=== PATIENT | female | born 1965 | race Hispanic/Latino ===

== ENCOUNTER 2018-02-07 22:10 | Observation (INO) | payer SELFPAY ==
[~2018-02-07 22:10] MED LIST: ISOVUE-370 76%-LOCM 1 ML ONE
[2018-02-07 23:22] LABS: PTT 23.1 SEC (22.9-36.1); Prothrombin Time 13.1 SEC (12.0-14.7)
[2018-02-07 23:23] LABS: Hemoglobin 9.1 g/dL (12.0-16.0); Mean Corpuscular Hemoglobin 17.2 pg (27.0-31.0); Mean Corpuscular Volume 57.4 fL (78.0-98.0); Platelet Count 310 thou/uL (130-400); RBC Distribution Width 19.6 % (11.5-14.5); Red Blood Cell (RBC) Count 5.28 mill/uL (4.20-5.40); White Blood Cell (WBC) Count 9.4 thou/uL (4.8-10.8)
[2018-02-07 23:28] LABS: ALT (SGPT) 20 U/L (8-55); AST (SGOT) 20 U/L (5-34); Albumin 4.2 g/dL (3.5-5.0); Alkaline Phosphatase 84 U/L (40-150); Anion Gap 13 mmol/L (10-20); BUN (Urea Nitrogen) 12 mg/dL (7.0-18.7); Bilirubin, Total 0.2 mg/dL (0.2-1.2); Calc. Creatinine Clearance 0 mL/min (70-130); Calcium 9.3 mg/dL (7.8-10.44); Carbon Dioxide 20 mmol/L (22-29); Chloride 105 mmol/L (98-107); Estimated GFR-MDRD Greater than 90; Globulin 3.3 g/dL (2.4-3.5); Glucose 98 mg/dL (70-105); Potassium 3.9 mmol/L (3.5-5.1); Protein, Total 7.5 g/dL (6.0-8.3); Sodium 134 mmol/L (136-145)
[2018-02-07 23:30] LABS: #Basophils 0.1 thou/uL (0.0-0.2); #Eosinphils 0.1 thou/uL (0.0-0.7); #Lymphocytes 3.2 thou/uL (1.20-3.40); #Monocytes 0.6 thou/uL (0.11-0.59); #Neutrophils 5.4 thou/uL (1.40-6.50); %Basophils 0.7 % (0.0-1.0); %Eosinophils 1.5 % (0.0-10.0); %Lymphocytes 34.2 % (21.0-51.0); %Neutrophils 57.6 % (42.0-75.0); Anisocytosis SLIGHT = 6-15 cells (100X) (0-5/hpf); Elliptocytes SLIGHT = 2-5 cells (100X) (0-1/hpf); Hypochromia SLIGHT = 6-15 cells (100X) (0-5/hpf); MDiff Complete? YES; Microcytosis MODERATE=15-30 cells (100X) (0-5/hpf)
--- NOTE | 2018-02-07 23:31 | CT ---
NONCONTRAST CT HEAD 02/07/18 HISTORY: Stroke. Left sided facial numbness and left upper extremity weakness. COMPARISON: None available. FINDINGS: There is no evidence of a hemorrhage, acute infarction, mass effect, or midline shift. Ventricular sy stem is normal in size, shape, and position. The visualized paranasal sinuses and mastoid air cells a re clear. Calvarial structures are intact. IMPRESSION: 1. No acute intracranial abnormalities demonstrated. 2. Above findings discussed with Dr. Chowdhury in the Emergency Department on 02/07/18 at 2308 hours. POS: [facility]
[2018-02-07 23:33] LABS: CKMB 0.8 ng/mL (0-6.6); Troponin I Less than 0.010 ng/mL (< 0.028)
--- NOTE | 2018-02-07 23:43 | CT ---
CT ANGIOGRAM BRAIN WITH IV CONTRAST AND 3D RECONSTRUCTIONS CT ANGIOGRAM NECK WITH IV CONTRAST AND 3D RECONSTRUCTIONS 02/07/18 HISTORY: Left sided facial numbness, left upper extremity weakness, stroke. CT ANGIOGRAM HEAD: The bilateral middle cerebral and anterior cerebral arteries are patent. The A1 segment of the right anterior cerebral artery is very small in caliber which is a normal variant. The distal vertebral art eries and basilar artery as well as posterior cerebral arteries are patent. there is no focal stenosi s or branch occlusion seen. No aneurysm is seen within the limitations of the technique of this exami nation. IMPRESSION: No focal stenosis or branch occlusion involving the bois forte of [place] or vertebrobasilar system. CT ANGIOGRAM NECK: The origin of the great vessels are mostly obscured due to artifact from very dense contrast in the i nnominate vein limiting evaluation. However, the innominate artery as well as bilateral common caroti d arteries and subclavian arteries are patent. the bilateral internal and external carotid arteries a re patent. The internal carotid arteries are very tortuous bilaterally. The left internal carotid artery extends laterally and approaches the deep portion of the left parotid gland. The vertebral arteries are codo minant bilaterally and are patent. IMPRESSION: 1. Very tortuous but patent bilateral internal carotid arteries. 2. Patent bilateral vertebral arteries. The above findings discussed with Dr. Chowdhury in the Emergency Department on 02/07/18 at 2331 hours. POS: [facility]
[2018-02-08 02:04] VITALS: BMI 36.3
[2018-02-08] MEDS ORDERED: Acetaminophen 325 MG TAB PO PRN (02:08)
[2018-02-08] MEDS ORDERED: Ondansetron HCl/PF 4 MG/2 ML Vial IVP PRN ×2 (02:08→07:10)
[2018-02-08] MEDS ORDERED: Ondansetron ODT 4 MG TAB SL PRN (02:08)
[2018-02-08 03:15] LABS: Troponin I 0.015 ng/mL (< 0.028)
[2018-02-08 06:23] LABS: Troponin I Less than 0.010 ng/mL (< 0.028)
[2018-02-08] MEDS ORDERED: Bisacodyl 5 MG TAB PO PRN (07:10)
[2018-02-08] MEDS ORDERED: Lorazepam 1 MG TAB PO PRN (07:10)
[2018-02-08] MEDS ORDERED: hydrALAZINE 20 MG/ML VIAL SLOW IVP PRN (07:10)
[2018-02-08] MEDS ORDERED: Benzonatate 100 MG CAP PO PRN (07:10)
[2018-02-08] MEDS ORDERED: Nitroglycerin 0.4 MG TAB (25 Tab Bottle) SL PRN (07:10)
[2018-02-08] MEDS ORDERED: Diabetic Tussin 200 MG/10 ML UDCUP PO PRN (07:10)
[2018-02-08] MEDS ORDERED: Loratadine 10 MG TAB PO PRN (07:10)
[2018-02-08] MEDS ORDERED: cloNIDine 0.1 MG TAB PO PRN (07:10)
[2018-02-08] MEDS ORDERED: Senokot 8.6 MG TAB PO PRN (07:10)
[2018-02-08] MEDS ORDERED: traMADol HCl 50 MG TAB PO PRN (07:10)
[2018-02-08 07:54] LABS: Cardiac Risk 6.3 (Less than 4.5); Cholesterol 247 mg/dl (< 200 Desired); HDL Cholesterol 39 mg/dL (>60 Neg Risk); Triglycerides 593 mg/dL (Less than 150)
[2018-02-08] MEDS ORDERED: Aspirin 325 mg Enteric Coated Tablet PO SCH (09:00)
[2018-02-08 10:11] LABS: Iron 31 ug/dL (50-170); Iron Binding Capacity, Total 549 mcg/dL (265-497)
[2018-02-08] MEDS ORDERED: IRON SUCROSE COMPLEX 100 MG/5 ML SLOW IVP SCH (13:45)
[2018-02-08] MEDS ORDERED: Sodium Ferric Gluconate 250 MG in Sodium Chloride 0.9% 100 ML IVPB SCH (14:00)
--- NOTE | 2018-02-08 14:06 | HP ---
DATE OF ADMISSION: 02/08/2018 CHIEF COMPLAINT: Left-sided chest tightness associated with left arm heaviness and tingling. HISTORY OF PRESENT ILLNESS: Ms. De Paz is a 52-year-old Venezuelan speaking only female with history of what she describes as ulcers in her stomach and history of anemia, who presented to the emergency ro om with above-mentioned complaint. History is mainly obtained by the patient herself using the help of a [place]an interpretation by our medical student and the chart has been reviewed extensively. Ms. De Paz reports that yesterday she started to have sudden onset of left-sided chest pain about 9/ 0 in intensity. It radiated to her left upper back and was associated with some mild shortness of br eath. She started to feel left upper extremity numbness and tingling. She also felt some palpitatio ns. She reported that she has been having some on and off palpitations for the last 2 days. She den ies any recent illnesses. These symptoms have not happened in the past. She denies any changes in h er vision. No changes in her speech. No facial droop was noticed. She denies any weakness of her a raheem or legs. She does report that she is perimenopausal and has been having heavy bleeding for the last few days. She just stopped a few days ago. She reports that she has been told that she has been anemic in the past and actually has undergone what sounds like an endoscopy probably in [place]. She reports that she was told that she has ulcers, but currently is not on any treatment for that. She denies any blo od in her stools or any black colored stools. No nausea, vomiting, diarrhea. She did have some urin rose frequency and burning couple days ago, but that is getting better. She has been told in the past that her cholesterol is high, but has not been diagnosed with hypertens ion in the past. She smokes about 4-6 cigarettes daily, but denies any drug or alcohol abuse. She d oes have family history of heart disease in her sister. Upon presentation to the emergency room, she was hemodynamically stable. Her blood pressure was 151/86 with a pulse of 105. She initially prese nted to [facility] where she underwent initial workup including a 12-lead EKG and ca rdiac enzymes, they were unremarkable. She was given pain medication, sublingual nitroglycerin, and aspirin, and was transferred to our facility for further workup. In our emergency department, she un derwent a CT angio of her head to rule out stroke for some reason and it was negative. There is tort uosity of the bilateral internal carotid arteries, but they are patent. Bilateral vertebral arteries are patent as well. She also underwent a CT scan of the brain which was once again unremarkable. C hest x-ray was unremarkable. Her cardiac enzymes have been negative so far as well. She is now anand vora admitted for further workup of her left-sided chest pain. PAST MEDICAL HISTORY: 1. Possibly peptic ulcer disease as described by the patient. 2. History of dyslipidemia. 3. Heavy menstrual bleeding in the perimenopausal period. 4. History of anemia. PAST SURGICAL HISTORY: 1. section x3. 2. Cholecystectomy. SOCIAL HISTORY: She is and lives with the family. Smokes 4-5 cigarettes per day. Denies an y drug or tobacco abuse. ALLERGIES: No known medication allergies. CURRENT MEDICATIONS: None. FAMILY HISTORY: Significant for heart disease in her father. Both of her parents had hypertension a nd her dad also had diabetes. REVIEW OF SYSTEMS: A 12-point review of systems is done, it is negative except for those mentioned i n the history and physical. LABORATORY DATA: CBC shows WBCs 9.4 with 57% neutrophils, hemoglobin is 9.1, which microcytic hypoch romic. Coagulation studies within normal limits. Serum chemistries upon presentation: Sodium 134, bicarbonate 20, otherwise unremarkable. Troponin level is within normal limit x3. Lipid panel shows triglycerides of 593, total cholesterol 247. Chest x-ray by my review has no evidence to suggest pleural effusion, infiltrate or edema. A 12-lead EKG by my review shows no evidence of acute ST or T-wave changes. She has normal sinus rhythm. PHYSICAL EXAMINATION: VITAL SIGNS: Most recent vital signs: Temperature 98.2, pulse of 62, respirations 16, saturating 98 % on room air, blood pressure 138/64. GENERAL: No acute distress, awake, alert, oriented x3, lying comfortably in bed. Family is at [facility]. HEENT: Mucous membrane is moist and pink. No oropharyngeal exudate or erythema. Head is normocepha lic, atraumatic. Pupils equal, reactive to light and accommodation. Extraocular movement intact. NECK: Supple without any lymphadenopathy, JVD or bruit. CHEST: Clear to auscultation without any wheezing, rales or rhonchi. CARDIAC: Rate and rhythm is regular without any murmur, rubs or gallops. ABDOMEN: Soft, nontender, nondistended, positive bowel sound, obese. EXTREMITIES: Free of any cyanosis, clubbing, or edema. NEUROLOGIC: Nonfocal. SKIN: Free of any rashes or bruises. Feels warm and dry to touch. PSYCHIATRIC: Normal affect. IMPRESSION AND PLAN: 1. Left-sided chest pain with left arm heaviness. The patient has multiple risk factors for coronar y arterial disease. She has extremely high values of triglycerides and cholesterol. At this time, s he will be started on aspirin and we will go ahead and start her on Lipitor as well as gemfibrozil be cause her levels are too high to be controlled by diet alone. She has been given strict instructions against tobacco abuse and has been instructed about dietary and lifestyle modification as well. We will go ahead and obtain a nuclear medicine stress test for further evaluation and rule out acute cor onary syndrome. Continue tele monitoring for now. 2. Iron deficiency anemia. We will check her iron levels and transfuse her with IV iron and if low. Most likely cause is perimenopausal abnormal bleeding. She will be referred to [facility] for this. W e will also obtain occult blood testing in the stool to rule out gastrointestinal causes given her hi story of ulcer disease. We will start her on PPIs for now. 3. Dysuria. Check urinalysis to rule out urinary tract infection. No indication for antibiotic for now. 4. Morbid obesity. Her BMI is 36.3. Once again lifestyle and dietary modifications advised. 5. Dyslipidemia. As above, she will be started on statin and gemfibrozil with dietary and lifestyle modification. 6. Deep venous thrombosis and gastrointestinal prophylaxis. DISPOSITION: Ms. De Paz is currently being admitted to the hospital to rule out acute coronary syndr ome and workup for anemia. She has continued observation status. Further management will depend upo n her clinical course.
--- NOTE | 2018-02-08 15:20 | NM ---
RADIONUCLIDE STRESS AND REST MYOCARDIAL PERFUSION SCAN WITH CT ATTENUATION CORRECTION AND SPECT IMAGI NG: HISTORY: Chest pain. FINDINGS: Adenosine protocol was used. There was heterogeneous uptake of radiotracer throughout the left ventri cular myocardium. No focal perfusion defect or reversibility. QGS analysis of gated SPECT images shows no focal wall motion abnormalities. Left ventricular ejection fraction is calculated at 79%. IMPRESSION: 1. Normal myocardial perfusion scan. 2. Normal LVEF. POS: [facility]
[2018-02-08 15:37] VITALS: BP 128/59; TEMP 97.6
[2018-02-08 15:43] LABS: Bilirubin Negative (Negative); Blood, Urine Negative (Negative); Clarity CLEAR (Clear); Glucose, Urine (Dipstick) Negative (Negative); Leukocyte Negative (Negative); Nitrite Negative (Negative); Protein, Urine (Dipstick) Negative (Neg-Trace); Urobilinogen 0.2 mg/dL (0.2-1.0)
[2018-02-08] MEDS ORDERED: ADENOSINE 60 MG/20 ML VIAL ONE (15:44)
[2018-02-08 15:48] LABS: Specific Gravity, Urine 1.048 (1.002-1.036)
[2018-02-08] MEDS ORDERED: Gemfibrozil 600 MG TAB PO SCH (16:30)
[2018-02-08] MEDS ORDERED: Simvastatin 40 MG TAB PO SCH (21:00)
[2018-02-08] MEDS ORDERED: Atorvastatin Calcium 20 MG TAB PO SCH (21:00)
--- NOTE | 2018-02-09 23:57 | DIS ---
DATE OF ADMISSION: 02/08/2018 DATE OF DISCHARGE: 02/08/2018 CONDITION AT THE TIME OF DISCHARGE: Stable. DISCHARGE DISPOSITION: Home. PRIMARY CARE PHYSICIAN: None. Patient is instructed to follow up with one of the free clinics in the community. DISCHARGE DIAGNOSES: 1. Left-sided chest pain, acute coronary syndrome ruled out. 2. Dyslipidemia. 3. Iron-deficiency anemia. 4. Abnormal perimenopausal bleeding. 5. Dysuria. 6. Dyslipidemia. 7. History of gastrointestinal bleed and peptic ulcer disease DISCHARGE MEDICATIONS: 1. Protonix 40 mg daily. 2. Gemfibrozil 600 mg p.o. b.i.d. 3. Ferrous sulfate 325 mg p.o. b.i.d. 4. Atorvastatin 20 mg daily. PROCEDURES DONE IN THE HOSPITAL: CT angiogram of the head and neck, which is unremarkable. CT scan of the brain which is unremarkable. Nuclear medicine stress test, which is normal without any eviden ce of ischemia or infarction. EF 79%. HOSPITAL COURSE: The patient was admitted earlier today for chest pain workup. Please see admission history and physical for further detail. She was found to be dyslipidemic and was started on statin and hypertriglyceride medications. She underwent nuclear medicine stress test, which was normal. S he has history of anemia and abnormal perimenopausal bleeding and what she told us was possible GI bl eed and peptic ulcer disease. She was given referral to outpatient [facility] with Dr. Alfred stephenson. She was given referral to outpatient followup with gastroenterology, Dr. Palomo. Her H&H was sta ble. She did not have any active bleeding ongoing. She was started on ferrous sulfate as instructed to follow up with primary care physician for establishment of care. Her iron level was low at 31 an d she was resuscitated with IV iron before discharge.
--- NOTE | 2018-02-11 01:01 | EKG ---
Test Reason : Blood Pressure : / mmHG Vent. Rate : 072 BPM Atrial Rate : 072 BPM P-R Int : 152 ms QRS Dur : 086 ms QT Int : 380 ms P-R-T Axes : 017 023 026 degrees QTc Int : 416 ms Normal sinus rhythm Normal ECG Confirmed by RAI MILLAN DO ([id number]), science editor JESSIE MORENO ([id number]) on 02/11/2018 1:01:16 AM Referred By: Confirmed By:RAI MILLAN DO
== END 2018-02-08 18:06 | disposition home or self-care (01) ==
LOC: ERS 22:10 → 2SW 02-08 00:15
PROVIDERS: ADMIT Hospitalist; ATTEND Hospitalist
DX: R07.9 Chest pain, unspecified (principal); E78.5 Hyperlipidemia, unspecified; D50.9 Iron deficiency anemia, unspecified; E66.01 Morbid (severe) obesity due to excess calories; N92.4 Excessive bleeding in the premenopausal period; R30.0 Dysuria; F17.210 Nicotine dependence, cigarettes, uncomplicated; Z68.36 Body mass index [BMI] 36.0-36.9, adult; Z87.19 Personal history of other diseases of the digestive system; Z79.899 Other long term (current) drug therapy
CPT/HCPCS: 36415; 36416; 70450; 70496; 70498; 78452; 80061; 81003; 83540; 83550; 84484; 85025; 85610; 85730; 93005; 93017; 96365; 96366; A4216; A9500; G0378; J0153; J2916; J7050

== ENCOUNTER 2018-08-16 17:53 | Observation (INO) | payer SELFPAY ==
[2018-08-16 18:41] LABS: #Eosinphils 0.1 thou/uL (0.0-0.7); #Lymphocytes 2.5 thou/uL (1.20-3.40); #Monocytes 0.4 thou/uL (0.11-0.59); %Basophils 0.4 % (0.0-1.0); %Eosinophils 0.9 % (0.0-10.0); %Lymphocytes 30.9 % (21.0-51.0); %Monocytes 5.6 % (0.0-10.0); %Neutrophils 62.2 % (42.0-75.0); Hemoglobin 11.5 g/dL (12.0-16.0); Mean Corpuscular HGB CONC 29.9 g/dL (32.0-36.0); Mean Corpuscular Hemoglobin 19.7 pg (27.0-31.0); Mean Corpuscular Volume 65.8 fL (78.0-98.0); Mean Platelet Volume 5.8 fL (7.4-10.4); Platelet Count 325 thou/uL (130-400); RBC Distribution Width 19.2 % (11.5-14.5); Red Blood Cell (RBC) Count 5.82 mill/uL (4.20-5.40)
[2018-08-16 19:00] LABS: Anisocytosis SLIGHT = 6-15 cells (100X) (0-5/hpf); Hypochromia SLIGHT = 6-15 cells (100X) (0-5/hpf); MDiff Complete? YES; Microcytosis SLIGHT = 6-15 cells (100X) (0-5/hpf); Ovalocytes SLIGHT = 2-5 cells (100X) (0-1/hpf); Platelet Morphology Comment Appears Adequate; Polychromasia SLIGHT = 2-3 cells (100X) (0-2/hpf); Target Cells SLIGHT = 2-5 cells (100X) (0-1/hpf)
[2018-08-16 19:05] LABS: ALT (SGPT) 17 U/L (8-55); AST (SGOT) 18 U/L (5-34); Albumin 4.2 g/dL (3.5-5.0); Alkaline Phosphatase 98 U/L (40-150); Anion Gap 16 mmol/L (10-20); BUN (Urea Nitrogen) 10 mg/dL (9.8-20.1); Bilirubin, Total 0.2 mg/dL (0.2-1.2); Calc. Creatinine Clearance 0 mL/min (70-130); Calcium 9.3 mg/dL (7.8-10.44); Carbon Dioxide 19 mmol/L (22-29); Chloride 107 mmol/L (98-107); Estimated GFR-MDRD 90; Globulin 3.5 g/dL (2.4-3.5); Glucose 86 mg/dL (70-105); Protein, Total 7.7 g/dL (6.0-8.3); Sodium 138 mmol/L (136-145)
[2018-08-16 19:10] LABS: BHCG - Serum Negative (NEGATIVE); Pregs Control Background? CLEAR/WHITE (CLR/WHITE); Pregs Control Bar Appear? YES (CONTROL BAR)
[2018-08-16 20:56] LABS: Bilirubin Negative (Negative); Blood, Urine Small (Negative); Clarity CLEAR (Clear); Glucose, Urine (Dipstick) Negative (Negative); Leukocyte Negative (Negative); Nitrite Negative (Negative); Protein, Urine (Dipstick) Trace mg/dL (Neg-Trace); Specific Gravity, Urine 1.023 (1.002-1.036); Urobilinogen 0.2 mg/dL (0.2-1.0)
[2018-08-16] MEDS ORDERED: Metoclopramide HCl 10 MG/2 ML VIAL ONE (20:57)
[2018-08-16 20:58] LABS: Bacteria/HPF None Seen HPF (None Seen); Hyaline Casts/LPF 0-3 HYALINE CAST LPF (0-3 Hyaline); Pathc Cast-AUWi Flag 0.14 (0-2.49); Squamous Epithelial 0-3 HPF (0-3); WBC/HPF 0-3 HPF (0-3)
[2018-08-16] MEDS ORDERED: diphenhydrAMINE 50 MG/ML VIAL ONE (20:58)
[2018-08-16] MEDS ORDERED: Ketorolac Tromethamine 30 MG/ML VIAL ONE (20:58)
--- NOTE | 2018-08-16 21:47 | CT ---
HEAD CT WITHOUT CONTRAST: 08/16/18 COMPARISON: 02/07/18 HISTORY: Headaches. TECHNIQUE: Axial CT imaging at 5 mm intervals from vertex through skull base without contrast. FINDINGS: The imaged paranasal sinuses/mastoid air cells are well aerated. There is no displaced calvarial frac ture. There is no intracranial hemorrhage, midline shift, or mass effect. IMPRESSION: No acute findings. POS: [facility]
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
--- NOTE | 2018-08-17 00:08 | CT ---
CT ANGIOGRAM OF HEAD AND NECK 08/16/18 HISTORY: Headache and dizziness. TECHNIQUE: Axial CT imaging at 1.25 mm intervals from vertex through lung apices with IV contrast using a CT ang iogram protocol. Coronal and sagittal 3D reformatted imaging obtained. FINDINGS: The visualized lung apices appear unremarkable. The retroantral fat and parapharyngeal fat appears clear bilaterally. The parotid glands and submandi bular glands demonstrate no acute findings. The tonsillar pillars, epiglottis and pre-epiglottic fat, hyoid bone, thyroid cartilage, cricoid cartilage, and thyroid gland demonstrate no acute findings. N o lymphadenopathy is seen within the neck. The paranasal sinuses and mastoid air cells are well aerated. There is a bovine arch noted. Origin of the left subclavian artery, left common carotid artery, innom inate artery, right subclavian artery and right common carotids demonstrate no hemodynamically signif icant stenosis. Bilateral vertebral artery origins appear unremarkable. The vertebral arteries are patent bilaterally. The basilar artery is patent. Branches of the basilar artery appear patent as well. No saccular aneur ysm, high grade stenosis or vascular occlusion is seen involving the posterior circulation. On the basis of NASCET criteria, there is no hemodynamically significant stenosis involving the commo n carotid artery on either side. On the basis of NASCET criteria, There is no hemodynamically significant stenosis involving the inter nal carotid artery on either side. Bilateral internal carotid arteries are markedly tortuous. The A1 segment is hypoplastic on the right. Distal ANGUS branches appear patent bilaterally. The M1 segment is patent bilaterally. The MCA bifurcation appears unremarkable bilaterally and distal MCA branches appear intact. No saccular aneurysm, high grade stenosis or vascular occlusion is seen involving the anterior circulation. IMPRESSION: CT angiogram of the head and neck demonstrate no acute findings. Incidental findings as detailed chidi javier. POS: [facility]
[2018-08-17] MEDS ORDERED: Ondansetron ODT 4 MG TAB SL PRN (00:23)
[2018-08-17] MEDS ORDERED: Ondansetron PF 4 MG/2 ML Vial IVP PRN ×2 (00:23)
[2018-08-17] MEDS ORDERED: Acetaminophen 325 MG TAB PO PRN ×2 (00:23)
[2018-08-17] MEDS ORDERED: Ondansetron ODT 4 MG TAB PO PRN (00:23)
[2018-08-17] MEDS ORDERED: Cyclobenzaprine 10 MG TAB PO PRN (00:41)
[2018-08-17] MEDS ORDERED: Methocarbamol 500 MG TAB PO SCH ×2 (00:45→15:28)
[2018-08-17] MEDS ORDERED: Docusate 100 MG CAP PO PRN (00:45)
[2018-08-17 00:58] VITALS: BMI 29.4
[2018-08-17] MEDS: Sodium Chloride 0.9% 1,000 ML IV SCH ×2 (01:08→12:06)
[2018-08-17 05:13] LABS: #Basophils 0.1 thou/uL (0.0-0.2); #Eosinphils 0.2 thou/uL (0.0-0.7); #Lymphocytes 2.8 thou/uL (1.20-3.40); #Monocytes 0.5 thou/uL (0.11-0.59); #Neutrophils 3.2 thou/uL (1.40-6.50); %Basophils 0.9 % (0.0-1.0); %Eosinophils 2.4 % (0.0-10.0); %Lymphocytes 41.8 % (21.0-51.0); %Monocytes 7.1 % (0.0-10.0); %Neutrophils 47.8 % (42.0-75.0); Mean Corpuscular HGB CONC 30.4 g/dL (32.0-36.0); Mean Corpuscular Hemoglobin 19.8 pg (27.0-31.0); Mean Corpuscular Volume 65.2 fL (78.0-98.0); Mean Platelet Volume 5.8 fL (7.4-10.4); Platelet Count 261 thou/uL (130-400); RBC Distribution Width 18.9 % (11.5-14.5); Red Blood Cell (RBC) Count 5.03 mill/uL (4.20-5.40); White Blood Cell (WBC) Count 6.6 thou/uL (4.8-10.8)
[2018-08-17 05:18] LABS: Hemoglobin A1c 5.2 % (4.0-6.0)
[2018-08-17 05:30] LABS: Cardiac Risk 5.7 (Less than 4.5)
[2018-08-17 05:44] LABS: Band 1 % (5-11); Hypochromia SLIGHT = 6-15 cells (100X) (0-5/hpf); Lymphocytes 46 % (21-51); MDiff Complete? YES; Mean Corpuscular HGB CONC 30.1 g/dL (32.0-36.0); Mean Corpuscular Hemoglobin 19.7 pg (27.0-31.0); Mean Corpuscular Volume 65.4 fL (78.0-98.0); Mean Platelet Volume 5.6 fL (7.4-10.4); Microcytosis SLIGHT = 6-15 cells (100X) (0-5/hpf); Monocytes 3 % (0-10); Neutrophil 49 % (42-75); Platelet Count 264 thou/uL (130-400); Platelet Morphology Comment Appears Adequate; RBC Distribution Width 18.8 % (11.5-14.5); Reactive Lymphocytes 1 % (0-10); Red Blood Cell (RBC) Count 5.06 mill/uL (4.20-5.40); White Blood Cell (WBC) Count 6.7 thou/uL (4.8-10.8)
--- NOTE | 2018-08-17 06:14 | PDOC.FM ---
- Subjective Subjective: NAEO. Headache improved, no nausea or vomiting.No photophobia. Endorses life stressors, says she is anxious but not depressed. says sometimes has vision changes in right eye with chewing for past month. - Objective MAR Reviewed: Yes Vital Signs & Weight: Vital Signs (12 hours) Temp Pulse Resp BP Pulse Ox 08/17/18 00:10 98.1 F 59 L 18 153/73 H 97 Weight Weight 80.24 kg Result Diagrams: 08/17/18 04:54 08/16/18 18:21 Phys Exam - Physical Examination Constitutional: NAD HEENT: PERRLA, moist MMs Neck: full ROM tender to palpation along cervical and occipital muscles Cardiovascular: RRR, no significant murmur Musculoskeletal: no edema Neurological: non-focal, moves all 4 limbs Psychiatric: normal affect, A&O x 3 Dx/Plan (1) GERD (gastroesophageal reflux disease) Code(s): K21.9 - GASTRO-ESOPHAGEAL REFLUX DISEASE WITHOUT ESOPHAGITIS Status: Acute (2) HLD (hyperlipidemia) Code(s): E78.5 - HYPERLIPIDEMIA, UNSPECIFIED Status: Acute (3) Intractable migraine Code(s): G43.919 - MIGRAINE, UNSP, INTRACTABLE, WITHOUT STATUS MIGRAINOSUS Status: Acute (4) Microcytic anemia Code(s): D50.9 - IRON DEFICIENCY ANEMIA, UNSPECIFIED Status: Acute (5) Nicotine abuse Code(s): Z72.0 - TOBACCO USE Status: Acute - Plan Plan: 53 yo with hx of migraines here with intractable migraine Intractable Migraine vs. complicated migraine vs tension SRINIVASAN, r/o CVA - CT brain and head negative for hemorrhagic and ischemic stroke - Neuro checks q4 hours - likely tension SRINIVASAN given occipitocervicogenic distribution of SRINIVASAN - Improved with robaxin, continue. - If SRINIVASAN unchanged or worsens, will give solumedrol - Allow for permissive HTN for 24 hrs - Will start patient on high intensity statin, continue ASA - MRI brain to further eval -ESR/CRP ordered to r/o Giant cell arteritis Iron deficiency Anemia - ferrous sulfate - AM H/H's to trend HLD - not taking any medications - ASCVD 9%, start on high intensity statin GERD - continue PPI Tobacco abuse - nicotine patch - encourage cessation elevated TSH -5.5, pt with no thyroid sxs -check t3/t4 -f/u outpt dispo: Tension SRINIVASAN- robaxin, if unimproved give solumedrol. pending MRI results. if negative can d/c home. Addendum - Attending - Attending Attestation Date/Time: 08/17/18 [id number] I personally evaluated the patient and discussed the management with Dr. Perez I agree with the History, Examination, Assessment and Plan documented above with any addition or exceptions noted below. Intractable headache- most likely severe tension srinivasan- at the time of my exam at 915 am she was srinivasan free. MRI negative. Stable for d/c home with muscle relaxer. If symptoms persist consider trigger point injections or OMT. iron deficiency anemia- replace HLD- start statin on d/c. Patient needs to set up with a PCP. TAMP information given.
[2018-08-17 07:57] VITALS: TEMP 98.4
[2018-08-17] MEDS ORDERED: Ferrous Sulfate 325 MG TAB PO SCH ×2 (08:00)
[2018-08-17] MEDS: Methocarbamol 500 MG TAB PO SCH ×2 (08:58→13:50)
[2018-08-17] MEDS ORDERED: Nicotine 14 MG PATCH TD SCH (09:00)
[2018-08-17] MEDS ORDERED: Docusate 100 MG CAP PO SCH (09:00)
[2018-08-17] MEDS ORDERED: Aspirin 81 mg Enteric Coated Tablet PO SCH (09:00)
[2018-08-17] MEDS ORDERED: Enoxaparin Sodium 40 MG/0.4 ML SYRINGE SC SCH (09:00)
[2018-08-17 11:29] LABS: Free T4 (Free Thyroxine) 1.04 ng/dL (0.70-1.48)
[2018-08-17 11:47] VITALS: BP 152/72
--- NOTE | 2018-08-17 13:35 | MRI ---
MRI BRAIN WITH AND WITHOUT CONTRAST: 08/17/2018 HISTORY: Severe headaches. Blurred vision with facial numbness and dizziness. COMPARISON: None. TECHNIQUE: Multiplanar, multisequence MR imaging of the brain is obtained with and without contrast. FINDINGS: The diffusion-weighted imaging demonstrates no evidence for acute infarction. The axial gradient echo imaging demonstrates no evidence for intracranial hemorrhage. The imaged paranasal sinuses/mastoid air cells appear grossly unremarkable. Arterial flow voids at t he axial level of the skull appear unremarkable on the T2 weighted imaging. The ventricular system appears normal in size and configuration. No abnormal enhancement is identified within the brain parenchyma. IMPRESSION: Unremarkable contrast enhanced brain MRI. POS: STEVE
[2018-08-17] MEDS ORDERED: Atorvastatin Calcium 20 MG TAB PO SCH ×2 (21:00)
--- NOTE | 2018-08-18 05:49 | DIS ---
DATE OF ADMISSION: 08/17/2018 DATE OF DISCHARGE: 08/17/2018 ADMITTING ATTENDING: Dr. Dsouza RESIDENT: Kailyn Perez, PGY1 CONSULTS: None. PRIMARY DIAGNOSES: 1. Tension headache versus complex migraine. 2. Iron deficiency anemia. SECONDARY DIAGNOSES: 1. Hyperlipidemia. 2. Gastroesophageal reflux disease. 3. Tobacco abuse. PROCEDURES: 1. Brain CT, no acute findings. 2. CT angiography, no acute findings. 3. Brain MRI unremarkable with no acute findings. DISCHARGE MEDICATIONS: 1. Robaxin 500 mg p.o. q.i.d. p.r.n. for neck and muscle pain. 2. Protonix 40 mg p.o. daily. 3. Zofran 4 mg p.o. q.6 hours p.r.n. for nausea. 4. Nicotine patch 14 mg transdermal q.24 hours. 5. Ferrous sulfate 325 mg p.o. b.i.d. 6. Atorvastatin 40 mg p.o. at bedtime. 7. Acetaminophen 650 mg p.o. q.4 hours p.r.n. 8. Lopid 600 mg p.o. b.i.d DISCONTINUED MEDICATIONS: 1. Atorvastatin 20 mg p.o. at bedtime. 2. Excedrin migraine two tabs p.o. daily p.r.n. for migraine. HISTORY OF PRESENT ILLNESS/HOSPITAL COURSE: Ms. Baldev Luther is a 53-year-old female who came in for 4 day history of a headche unimproved with tylenol. Clinical presentation was consistent migraine-right neck occipital pain radiating to entire head, druze pain with chewing, ear pain, right eye pain, photophobia, phonophobia, blurry vision, and nausea. Workup included CT head, CT angio which was negative for hemorrhagic stroke or cerebral aa. occlusion. Patient was admitted for intractable pain with posterior stroke rule out given her symptoms. It was thought that patient's headache presentation was more consistent with migraine vs. tension SRINIVASAN vs. muscle spasm and was started on Robaxin and migraine medications. Overnight, patient's headache improved. MRI brain definitively ruled out stroke. ESR/CRP obtained for Giant cell arteritis was also within normal limits. Of note, patient has been experiencing more life stressors which she believed was the cause of her headaches. This was confirmed with resolution of headaches with Robaxin and tenderness to palpation along the occipitocervical muscles. Recommendations to use warm compress and continue wtih robaxin were discussed with her. Lastly, patient was started on ferrous sulfate for Iron-deficiency anemia seen during this admission. The patient has a PMH of this but had not been taking iron replacement. DISCHARGE INSTRUCTIONS: 1. Location: Home. 2. Diet: Heart healthy diet. 3. Activity: As tolerated. 4. Followup: a. Please follow up with PCP, Dr. Kailyn Perez, in 7 to 10 days. Job ID: [id number] [facility]OSPITALMichelle
== END 2018-08-17 16:59 | disposition home or self-care (01) ==
LOC: ERS 17:53 → 2SE 08-17 00:03
PROVIDERS: ADMIT Student in an Organized Health Care Education/Training Program; ATTEND Student in an Organized Health Care Education/Training Program
DX: G43.919 Migraine, unspecified, intractable, without status migrainosus (principal); D50.9 Iron deficiency anemia, unspecified; E78.5 Hyperlipidemia, unspecified; K21.9 Gastro-esophageal reflux disease without esophagitis; F17.210 Nicotine dependence, cigarettes, uncomplicated; M50.20 Other cervical disc displacement, unspecified cervical region; M51.26 Other intervertebral disc displacement, lumbar region
CPT/HCPCS: 36415; 70450; 70496; 70498; 70553; 80053; 80061; 81003; 81015; 82728; 83036; 83540; 83550; 84439; 84443; 84481; 84484; 84703; 85007; 85025; 85027; 85060; 85652; 86140; 93005; 94760; 96361; 96372; 96374; 96375; G0378; J1200; J1650; J1885; J2765; Q9966